=== PATIENT | female | born 1975 | race Caucasian/White ===

== ENCOUNTER 2022-12-21 14:15 | Inpatient (IN) | payer OTHER ==
[2022-12-21 15:45] VITALS: BMI 27.2
[2022-12-21] MEDS ORDERED: chlordiazePOXIDE HCL 25 MG CAPSULE PO ONE (18:43)
[2022-12-21] MEDS ORDERED: POLYETHYLENE GLYCOL (HEALTHYLAX) 3350 17 GM PACKET PO PRN (18:45)
[2022-12-21] MEDS ORDERED: BISMUTH SUBSALICYLATE 524 MG/30 ML PO PRN (18:45)
[2022-12-21] MEDS ORDERED: P-EPHED 60MG/TRIPROLIDI 2.5MG TABLET PO PRN (18:45)
[2022-12-21] MEDS ORDERED: LOPERAMIDE HCL 2 MG CAPSULE PO PRN (18:45)
[2022-12-21] MEDS ORDERED: BENZONATATE 200 MG CAPSULE PO PRN (18:45)
[2022-12-21] MEDS ORDERED: ACETAMINOPHEN 325 MG TABLET (FP) PO PRN (18:45)
[2022-12-21] MEDS ORDERED: BENZOCAINE/MENTHOL (CHLORASEPTIC ) LOZENGE MM PRN (18:45)
[2022-12-21] MEDS ORDERED: DICYCLOMINE HCL 10 MG CAPSULE PO PRN (18:45)
[2022-12-21] MEDS ORDERED: guaiFENesin 600 MG TABLET.ER (FP) PO PRN (18:45)
[2022-12-21] MEDS: BACITRACIN ZINC 15 GM TUBE TOPICAL OINTMENT TP SCH ×2 (20:11→23:32)
[2022-12-21] MEDS ORDERED: MELATONIN 5 MG TABLETS PO SCH (22:00)
[2022-12-21] MEDS: THIAMINE HCL 100 MG TABLET (FP) PO SCH (22:16)
[2022-12-21] MEDS: chlordiazePOXIDE HCL 25 MG CAPSULE PO SCH (22:17)
[2022-12-22] MEDS: chlordiazePOXIDE HCL 25 MG CAPSULE PO SCH ×4 (05:44→22:43)
[2022-12-22] MEDS: hydrOXYzine PAMOATE 25 MG CAPSULE (FP) PO PRN (10:20)
[2022-12-22] MEDS: METHOCARBAMOL 500 MG TABLET PO PRN (10:20)
[2022-12-22] MEDS: PRENATAL VITAMINS W/ FOLIC ACID TABLET (FP) PO SCH (10:20)
[2022-12-22] MEDS: BACITRACIN ZINC 15 GM TUBE TOPICAL OINTMENT TP SCH (10:20)
[2022-12-22 11:20] LABS: HEMOGLOBIN 11.7 GM/dL (10.7-15.3); MCH 28.6 pg (25.7-33.7); MCHC 32.6 g/dl (32.0-36.0); MEAN CELL VOLUME 87.7 fl (80-96); MEAN PLT VOLUME 8.2 fl (7.5-11.1); PLATELET COUNT 287 10^3/uL (134-434); RBC 4.11 M/mm3 (3.60-5.2); RDW 16.3 % (11.6-15.6); WHITE BLOOD COUNT 4.1 K/mm3 (4.0-10.0)
[2022-12-22 11:21] LABS: POTASSIUM 3.6 mmol/L (3.5-5.1)
[2022-12-22 11:34] LABS: ALBUMIN 3.2 g/dl (3.4-5.0); CALCIUM 8.7 mg/dL (8.5-10.1)
[2022-12-22 11:36] LABS: BLOOD UREA NITROGEN 15.2 mg/dL (7-18)
[2022-12-22 11:37] LABS: CREATININE 0.7 mg/dL (0.55-1.3)
[2022-12-22 11:39] LABS: BILIRUBIN,TOTAL 0.4 mg/dL (0.2-1); TOT PROT 6.1 g/dl (6.4-8.2)
[2022-12-22] MEDS: chlordiazePOXIDE HCL 25 MG CAPSULE PO PRN ×2 (12:46→19:18)
[2022-12-22] MEDS: GABAPENTIN 300 MG CAPSULE PO SCH ×2 (13:39→22:42)
[2022-12-22] MEDS: IBUPROFEN 600 MG TABLET (FP) PO PRN (17:06)
[2022-12-22] MEDS: ONDANSETRON *ODT* 4 MG TABLET SL PRN (17:06)
[2022-12-22] MEDS: BACITRACIN 0.9 GM PACKET TP SCH (22:42)
[2022-12-22] MEDS: THIAMINE HCL 100 MG TABLET (FP) PO SCH (22:42)
[2022-12-22] MEDS: MIRTAZAPINE 15 MG TABLET (FP) PO SCH (22:43)
[2022-12-23] MEDS: GABAPENTIN 300 MG CAPSULE PO SCH ×3 (05:26→22:09)
[2022-12-23] MEDS: chlordiazePOXIDE HCL 25 MG CAPSULE PO SCH ×4 (05:27→22:09)
[2022-12-23] MEDS: LEVOTHYROXINE 100 MCG, LEVOTHYROXINE 25 MCG PO SCH (06:03)
[2022-12-23] MEDS ORDERED: LEVOTHYROXINE PO SCH (07:00)
[2022-12-23] MEDS: BACITRACIN 0.9 GM PACKET TP SCH ×2 (10:16→22:09)
[2022-12-23] MEDS: hydrOXYzine PAMOATE 25 MG CAPSULE (FP) PO PRN ×2 (10:16→17:21)
[2022-12-23] MEDS: METHOCARBAMOL 500 MG TABLET PO PRN ×2 (10:16→22:09)
[2022-12-23] MEDS: PRENATAL VITAMINS W/ FOLIC ACID TABLET (FP) PO SCH (10:16)
[2022-12-23] MEDS: FLUTICASONE PROP 0.05% 16 GM NASAL SPRAY NS SCH (15:27)
[2022-12-23] MEDS: chlordiazePOXIDE HCL 25 MG CAPSULE PO PRN ×2 (15:29→20:30)
[2022-12-23] MEDS: MIRTAZAPINE 15 MG TABLET (FP) PO SCH (22:09)
[2022-12-23] MEDS: THIAMINE HCL 100 MG TABLET (FP) PO SCH (22:09)
[2022-12-23] MEDS: MAG HYDROX/AL HYDROX/SIMETH 30 ML UNIT-DOSE CUP PO PRN (22:10)
[2022-12-23] MEDS: IBUPROFEN 600 MG TABLET (FP) PO PRN (23:39)
[2022-12-24] MEDS: chlordiazePOXIDE HCL 10 MG CAPSULE PO PRN ×3 (00:38→21:17)
[2022-12-24] MEDS: GABAPENTIN 300 MG CAPSULE PO SCH ×3 (05:59→22:40)
[2022-12-24] MEDS: chlordiazePOXIDE HCL 10 MG CAPSULE PO SCH ×4 (06:00→22:41)
[2022-12-24] MEDS: METHOCARBAMOL 500 MG TABLET PO PRN (10:10)
[2022-12-24] MEDS: hydrOXYzine PAMOATE 25 MG CAPSULE (FP) PO PRN ×2 (10:10→17:36)
[2022-12-24] MEDS: BACITRACIN 0.9 GM PACKET TP SCH ×2 (10:10→22:40)
[2022-12-24] MEDS: FLUTICASONE PROP 0.05% 16 GM NASAL SPRAY NS SCH (10:10)
[2022-12-24] MEDS: PRENATAL VITAMINS W/ FOLIC ACID TABLET (FP) PO SCH (10:10)
[2022-12-24] MEDS: IBUPROFEN 600 MG TABLET (FP) PO PRN (13:52)
[2022-12-24] MEDS: THIAMINE HCL 100 MG TABLET (FP) PO SCH (22:40)
[2022-12-24] MEDS: MIRTAZAPINE 15 MG TABLET (FP) PO SCH (22:41)
[2022-12-25] MEDS: chlordiazePOXIDE HCL 10 MG CAPSULE PO SCH ×2 (05:46→17:23)
[2022-12-25] MEDS: GABAPENTIN 300 MG CAPSULE PO SCH ×3 (05:46→22:26)
[2022-12-25] MEDS: PRENATAL VITAMINS W/ FOLIC ACID TABLET (FP) PO SCH (10:25)
[2022-12-25] MEDS: FLUTICASONE PROP 0.05% 16 GM NASAL SPRAY NS SCH (10:27)
[2022-12-25] MEDS: BACITRACIN 0.9 GM PACKET TP SCH ×2 (10:27→22:25)
[2022-12-25] MEDS: METHOCARBAMOL 500 MG TABLET PO PRN (17:20)
[2022-12-25] MEDS: hydrOXYzine PAMOATE 25 MG CAPSULE (FP) PO PRN (17:20)
[2022-12-25] MEDS: ONDANSETRON *ODT* 4 MG TABLET SL PRN (19:46)
[2022-12-25] MEDS: IBUPROFEN 600 MG TABLET (FP) PO PRN (19:46)
[2022-12-25] MEDS: THIAMINE HCL 100 MG TABLET (FP) PO SCH (22:25)
[2022-12-25] MEDS: MIRTAZAPINE 15 MG TABLET (FP) PO SCH (22:26)
[2022-12-25] MEDS: MAG HYDROX/AL HYDROX/SIMETH 30 ML UNIT-DOSE CUP PO PRN (23:33)
[2022-12-26] MEDS ORDERED: chlordiazePOXIDE HCL 10 MG CAPSULE PO ONE (05:00)
[2022-12-26] MEDS: GABAPENTIN 300 MG CAPSULE PO SCH ×3 (05:53→21:37)
[2022-12-26] MEDS: PRENATAL VITAMINS W/ FOLIC ACID TABLET (FP) PO SCH (09:42)
[2022-12-26] MEDS: FLUTICASONE PROP 0.05% 16 GM NASAL SPRAY NS SCH (09:42)
[2022-12-26] MEDS: BACITRACIN 0.9 GM PACKET TP SCH ×2 (09:42→21:37)
[2022-12-26] MEDS: IBUPROFEN 600 MG TABLET (FP) PO PRN ×2 (11:58→19:19)
[2022-12-26] MEDS: ONDANSETRON *ODT* 4 MG TABLET SL PRN ×2 (11:58→19:19)
[2022-12-26] MEDS: MIRTAZAPINE 15 MG TABLET (FP) PO SCH (21:37)
[2022-12-26] MEDS: THIAMINE HCL 100 MG TABLET (FP) PO SCH (21:37)
[2022-12-27] MEDS: METHOCARBAMOL 500 MG TABLET PO PRN (01:27)
[2022-12-27] MEDS: hydrOXYzine PAMOATE 25 MG CAPSULE (FP) PO PRN ×3 (01:27→21:19)
[2022-12-27] MEDS: LEVOTHYROXINE 100 MCG, LEVOTHYROXINE 25 MCG PO SCH (06:18)
[2022-12-27] MEDS: GABAPENTIN 300 MG CAPSULE PO SCH ×3 (06:40→21:19)
[2022-12-27] MEDS: BACITRACIN 0.9 GM PACKET TP SCH ×2 (10:25→21:19)
[2022-12-27] MEDS: PRENATAL VITAMINS W/ FOLIC ACID TABLET (FP) PO SCH (10:26)
[2022-12-27] MEDS: FLUTICASONE PROP 0.05% 16 GM NASAL SPRAY NS SCH (13:28)
[2022-12-27] MEDS: IBUPROFEN 400 MG TABLET (FP) PO PRN (19:39)
[2022-12-27] MEDS: ONDANSETRON *ODT* 4 MG TABLET SL PRN (19:39)
[2022-12-27] MEDS: MIRTAZAPINE 15 MG TABLET (FP) PO SCH (21:19)
[2022-12-27] MEDS: THIAMINE HCL 100 MG TABLET (FP) PO SCH (21:20)
[2022-12-28] MEDS: GABAPENTIN 300 MG CAPSULE PO SCH ×3 (07:00→21:21)
[2022-12-28] MEDS: FLUTICASONE PROP 0.05% 16 GM NASAL SPRAY NS SCH (09:58)
[2022-12-28] MEDS: BACITRACIN 0.9 GM PACKET TP SCH ×2 (09:58→21:21)
[2022-12-28] MEDS: PRENATAL VITAMINS W/ FOLIC ACID TABLET (FP) PO SCH (09:58)
[2022-12-28] MEDS: hydrOXYzine PAMOATE 25 MG CAPSULE (FP) PO PRN (14:04)
[2022-12-28] MEDS ORDERED: buPROPion HCL 100 MG TABLET PO ONE (16:00)
[2022-12-28] MEDS ORDERED: buPROPion HCL 75 MG TABLET PO ONE (17:00)
[2022-12-28] MEDS: SUVOREXANT 10 MG TABLET PO PRN (21:21)
[2022-12-28] MEDS: THIAMINE HCL 100 MG TABLET (FP) PO SCH (21:21)
[2022-12-28] MEDS: MIRTAZAPINE 15 MG TABLET (FP) PO SCH (21:21)
[2022-12-29] MEDS: GABAPENTIN 300 MG CAPSULE PO SCH ×3 (06:03→21:08)
[2022-12-29] MEDS: BACITRACIN 0.9 GM PACKET TP SCH ×2 (10:00→21:07)
[2022-12-29] MEDS: PRENATAL VITAMINS W/ FOLIC ACID TABLET (FP) PO SCH (10:00)
[2022-12-29] MEDS: FLUTICASONE PROP 0.05% 16 GM NASAL SPRAY NS SCH (10:02)
[2022-12-29] MEDS: hydrOXYzine PAMOATE 25 MG CAPSULE (FP) PO PRN ×2 (13:32→21:08)
[2022-12-29] MEDS: buPROPion HCL 75 MG TABLET PO SCH (14:32)
[2022-12-29] MEDS ORDERED: buPROPion HCL 75 MG TABLET PO SCH (15:00)
[2022-12-29] MEDS: MIRTAZAPINE 15 MG TABLET (FP) PO SCH (21:08)
[2022-12-29] MEDS: THIAMINE HCL 100 MG TABLET (FP) PO SCH (21:08)
[2022-12-29] MEDS: SUVOREXANT 10 MG TABLET PO PRN (21:08)
[2022-12-30] MEDS: GABAPENTIN 300 MG CAPSULE PO SCH ×3 (06:44→21:28)
[2022-12-30] MEDS: FLUTICASONE PROP 0.05% 16 GM NASAL SPRAY NS SCH (09:48)
[2022-12-30] MEDS: BACITRACIN 0.9 GM PACKET TP SCH ×2 (09:48→21:27)
[2022-12-30] MEDS: PRENATAL VITAMINS W/ FOLIC ACID TABLET (FP) PO SCH (09:48)
[2022-12-30] MEDS: IBUPROFEN 600 MG TABLET (FP) PO PRN ×2 (11:15→21:34)
[2022-12-30] MEDS: FAMOTIDINE 20 MG TABLET PO SCH (14:06)
[2022-12-30] MEDS: buPROPion HCL 75 MG TABLET PO SCH (15:19)
[2022-12-30] MEDS: hydrOXYzine PAMOATE 25 MG CAPSULE (FP) PO PRN (18:46)
[2022-12-30] MEDS: THIAMINE HCL 100 MG TABLET (FP) PO SCH (21:27)
[2022-12-30] MEDS: MIRTAZAPINE 15 MG TABLET (FP) PO SCH (21:27)
[2022-12-30] MEDS: SUVOREXANT 10 MG TABLET PO PRN (21:35)
[2022-12-31] MEDS ORDERED: LEVOTHYROXINE NA 25 MCG TABLET (FP) PO SCH (06:00)
[2022-12-31] MEDS: GABAPENTIN 300 MG CAPSULE PO SCH ×3 (06:34→21:24)
[2022-12-31] MEDS: LEVOTHYROXINE 100 MCG, LEVOTHYROXINE 25 MCG PO SCH (06:34)
[2022-12-31] MEDS: PRENATAL VITAMINS W/ FOLIC ACID TABLET (FP) PO SCH (10:17)
[2022-12-31] MEDS: BACITRACIN 0.9 GM PACKET TP SCH ×2 (10:19→21:23)
[2022-12-31] MEDS: FAMOTIDINE 20 MG TABLET PO SCH (10:19)
[2022-12-31] MEDS: FLUTICASONE PROP 0.05% 16 GM NASAL SPRAY NS SCH (10:19)
[2022-12-31] MEDS: buPROPion HCL 75 MG TABLET PO SCH (16:12)
[2022-12-31] MEDS: hydrOXYzine PAMOATE 25 MG CAPSULE (FP) PO PRN (19:19)
[2022-12-31] MEDS: IBUPROFEN 600 MG TABLET (FP) PO PRN (19:19)
[2022-12-31] MEDS: THIAMINE HCL 100 MG TABLET (FP) PO SCH (21:23)
[2022-12-31] MEDS: MIRTAZAPINE 15 MG TABLET (FP) PO SCH (21:24)
[2022-12-31] MEDS: SUVOREXANT 10 MG TABLET PO PRN (21:25)
[2023-01-01] MEDS: LEVOTHYROXINE 100 MCG, LEVOTHYROXINE 25 MCG PO SCH (06:17)
[2023-01-01] MEDS: GABAPENTIN 300 MG CAPSULE PO SCH ×3 (06:17→21:19)
[2023-01-01] MEDS: FLUTICASONE PROP 0.05% 16 GM NASAL SPRAY NS SCH (10:19)
[2023-01-01] MEDS: FAMOTIDINE 20 MG TABLET PO SCH (10:19)
[2023-01-01] MEDS: PRENATAL VITAMINS W/ FOLIC ACID TABLET (FP) PO SCH (10:19)
[2023-01-01] MEDS: BACITRACIN 0.9 GM PACKET TP SCH ×2 (10:19→21:19)
[2023-01-01] MEDS: IBUPROFEN 600 MG TABLET (FP) PO PRN (11:53)
[2023-01-01] MEDS: buPROPion HCL 75 MG TABLET PO SCH (15:47)
[2023-01-01] MEDS: hydrOXYzine PAMOATE 25 MG CAPSULE (FP) PO PRN (18:41)
[2023-01-01] MEDS: MIRTAZAPINE 15 MG TABLET (FP) PO SCH (21:19)
[2023-01-01] MEDS: THIAMINE HCL 100 MG TABLET (FP) PO SCH (21:20)
[2023-01-01] MEDS: SUVOREXANT 10 MG TABLET PO PRN (21:21)
[2023-01-02] MEDS: LEVOTHYROXINE 100 MCG, LEVOTHYROXINE 25 MCG PO SCH (06:15)
[2023-01-02] MEDS: GABAPENTIN 300 MG CAPSULE PO SCH ×3 (06:32→21:16)
[2023-01-02] MEDS: PRENATAL VITAMINS W/ FOLIC ACID TABLET (FP) PO SCH (09:36)
[2023-01-02] MEDS: BACITRACIN 0.9 GM PACKET TP SCH ×2 (09:36→21:16)
[2023-01-02] MEDS: FAMOTIDINE 20 MG TABLET PO SCH (09:36)
[2023-01-02] MEDS: FLUTICASONE PROP 0.05% 16 GM NASAL SPRAY NS SCH (09:36)
[2023-01-02] MEDS: buPROPion HCL 75 MG TABLET PO SCH (15:47)
[2023-01-02] MEDS: hydrOXYzine PAMOATE 25 MG CAPSULE (FP) PO PRN (20:14)
[2023-01-02] MEDS: IBUPROFEN 600 MG TABLET (FP) PO PRN (20:15)
[2023-01-02] MEDS: THIAMINE HCL 100 MG TABLET (FP) PO SCH (21:16)
[2023-01-02] MEDS: SUVOREXANT 10 MG TABLET PO PRN (21:16)
[2023-01-02] MEDS: MIRTAZAPINE 15 MG TABLET (FP) PO SCH (21:16)
[2023-01-03] MEDS: LEVOTHYROXINE 100 MCG, LEVOTHYROXINE 25 MCG PO SCH (06:40)
[2023-01-03] MEDS: GABAPENTIN 300 MG CAPSULE PO SCH ×4 (06:44→21:23)
[2023-01-03] MEDS: IBUPROFEN 400 MG TABLET (FP) PO PRN (07:25)
[2023-01-03] MEDS: FLUTICASONE PROP 0.05% 16 GM NASAL SPRAY NS SCH (10:42)
[2023-01-03] MEDS: FAMOTIDINE 20 MG TABLET PO SCH (10:42)
[2023-01-03] MEDS: BACITRACIN 0.9 GM PACKET TP SCH ×2 (10:42→21:23)
[2023-01-03] MEDS: PRENATAL VITAMINS W/ FOLIC ACID TABLET (FP) PO SCH (10:43)
[2023-01-03] MEDS: buPROPion HCL 75 MG TABLET PO SCH (14:26)
[2023-01-03] MEDS: THIAMINE HCL 100 MG TABLET (FP) PO SCH (21:23)
[2023-01-03] MEDS: SUVOREXANT 10 MG TABLET PO PRN (21:23)
[2023-01-03] MEDS: MIRTAZAPINE 15 MG TABLET (FP) PO SCH (21:23)
[2023-01-04] MEDS: GABAPENTIN 300 MG CAPSULE PO SCH ×3 (06:09→21:02)
[2023-01-04] MEDS: LEVOTHYROXINE 100 MCG, LEVOTHYROXINE 25 MCG PO SCH (06:09)
[2023-01-04] MEDS: BACITRACIN 0.9 GM PACKET TP SCH ×2 (10:03→21:02)
[2023-01-04] MEDS: FLUTICASONE PROP 0.05% 16 GM NASAL SPRAY NS SCH (10:03)
[2023-01-04] MEDS: FAMOTIDINE 20 MG TABLET PO SCH (10:04)
[2023-01-04] MEDS: PRENATAL VITAMINS W/ FOLIC ACID TABLET (FP) PO SCH (10:04)
[2023-01-04] MEDS: NALTREXONE HCL 50 MG TABLET PO SCH (10:04)
[2023-01-04] MEDS: buPROPion HCL 75 MG TABLET PO SCH (15:04)
[2023-01-04] MEDS: IBUPROFEN 600 MG TABLET (FP) PO PRN (15:49)
[2023-01-04] MEDS: MIRTAZAPINE 15 MG TABLET (FP) PO SCH (21:02)
[2023-01-04] MEDS: THIAMINE HCL 100 MG TABLET (FP) PO SCH (21:03)
[2023-01-04] MEDS: SUVOREXANT 10 MG TABLET PO PRN (21:04)
[2023-01-05] MEDS: LEVOTHYROXINE 100 MCG, LEVOTHYROXINE 25 MCG PO SCH (06:24)
[2023-01-05] MEDS: GABAPENTIN 300 MG CAPSULE PO SCH ×3 (06:24→21:14)
[2023-01-05 07:18] VITALS: RESP 18
[2023-01-05] MEDS: PRENATAL VITAMINS W/ FOLIC ACID TABLET (FP) PO SCH (09:53)
[2023-01-05] MEDS: NALTREXONE HCL 50 MG TABLET PO SCH (09:54)
[2023-01-05] MEDS: FLUTICASONE PROP 0.05% 16 GM NASAL SPRAY NS SCH (09:54)
[2023-01-05] MEDS: BACITRACIN 0.9 GM PACKET TP SCH ×2 (09:54→21:16)
[2023-01-05] MEDS: FAMOTIDINE 20 MG TABLET PO SCH (09:54)
[2023-01-05] MEDS: buPROPion HCL 75 MG TABLET PO SCH (15:33)
[2023-01-05] MEDS: hydrOXYzine PAMOATE 25 MG CAPSULE (FP) PO PRN (21:13)
[2023-01-05] MEDS: THIAMINE HCL 100 MG TABLET (FP) PO SCH (21:13)
[2023-01-05] MEDS: IBUPROFEN 600 MG TABLET (FP) PO PRN (21:14)
[2023-01-05] MEDS: MIRTAZAPINE 15 MG TABLET (FP) PO SCH (21:14)
[2023-01-05] MEDS: SUVOREXANT 10 MG TABLET PO PRN (21:16)
[2023-01-06] MEDS: LEVOTHYROXINE 100 MCG, LEVOTHYROXINE 25 MCG PO SCH (06:07)
[2023-01-06] MEDS: GABAPENTIN 300 MG CAPSULE PO SCH ×3 (06:07→21:31)
[2023-01-06] MEDS: FAMOTIDINE 20 MG TABLET PO SCH (10:00)
[2023-01-06] MEDS: FLUTICASONE PROP 0.05% 16 GM NASAL SPRAY NS SCH (10:00)
[2023-01-06] MEDS: PRENATAL VITAMINS W/ FOLIC ACID TABLET (FP) PO SCH (10:00)
[2023-01-06] MEDS: BACITRACIN 0.9 GM PACKET TP SCH ×2 (10:00→21:31)
[2023-01-06] MEDS: NALTREXONE HCL 50 MG TABLET PO SCH (10:01)
[2023-01-06] MEDS: buPROPion HCL 75 MG TABLET PO SCH (15:38)
[2023-01-06] MEDS: MIRTAZAPINE 15 MG TABLET (FP) PO SCH (21:32)
[2023-01-06] MEDS: THIAMINE HCL 100 MG TABLET (FP) PO SCH (21:32)
[2023-01-06] MEDS: SUVOREXANT 10 MG TABLET PO PRN (21:33)
[2023-01-06] MEDS: hydrOXYzine PAMOATE 25 MG CAPSULE (FP) PO PRN (21:35)
[2023-01-06] MEDS: IBUPROFEN 600 MG TABLET (FP) PO PRN (21:35)
[2023-01-07] MEDS: LEVOTHYROXINE 100 MCG, LEVOTHYROXINE 25 MCG PO SCH (06:20)
[2023-01-07] MEDS: GABAPENTIN 300 MG CAPSULE PO SCH ×3 (06:20→21:23)
[2023-01-07] MEDS: BACITRACIN 0.9 GM PACKET TP SCH ×2 (09:50→21:20)
[2023-01-07] MEDS: FAMOTIDINE 20 MG TABLET PO SCH (09:50)
[2023-01-07] MEDS: FLUTICASONE PROP 0.05% 16 GM NASAL SPRAY NS SCH (09:51)
[2023-01-07] MEDS: NALTREXONE HCL 50 MG TABLET PO SCH (09:51)
[2023-01-07] MEDS: PRENATAL VITAMINS W/ FOLIC ACID TABLET (FP) PO SCH (10:09)
[2023-01-07] MEDS: buPROPion HCL 75 MG TABLET PO SCH (15:06)
[2023-01-07] MEDS: MIRTAZAPINE 15 MG TABLET (FP) PO SCH (21:22)
[2023-01-07] MEDS: hydrOXYzine PAMOATE 25 MG CAPSULE (FP) PO PRN (21:22)
[2023-01-07] MEDS: THIAMINE HCL 100 MG TABLET (FP) PO SCH (21:22)
[2023-01-07] MEDS: IBUPROFEN 600 MG TABLET (FP) PO PRN (21:24)
[2023-01-07] MEDS: SUVOREXANT 10 MG TABLET PO PRN (21:35)
[2023-01-08] MEDS: LEVOTHYROXINE 100 MCG, LEVOTHYROXINE 25 MCG PO SCH (06:21)
[2023-01-08] MEDS: GABAPENTIN 300 MG CAPSULE PO SCH ×3 (06:22→21:32)
[2023-01-08] MEDS: IBUPROFEN 600 MG TABLET (FP) PO PRN ×2 (07:59→15:33)
[2023-01-08] MEDS: FLUTICASONE PROP 0.05% 16 GM NASAL SPRAY NS SCH (10:11)
[2023-01-08] MEDS: FAMOTIDINE 20 MG TABLET PO SCH (10:12)
[2023-01-08] MEDS: PRENATAL VITAMINS W/ FOLIC ACID TABLET (FP) PO SCH (10:12)
[2023-01-08] MEDS: NALTREXONE HCL 50 MG TABLET PO SCH (10:12)
[2023-01-08] MEDS: BACITRACIN 0.9 GM PACKET TP SCH ×2 (10:14→21:31)
[2023-01-08] MEDS: buPROPion HCL 75 MG TABLET PO SCH (15:32)
[2023-01-08] MEDS: THIAMINE HCL 100 MG TABLET (FP) PO SCH (21:32)
[2023-01-08] MEDS: MIRTAZAPINE 15 MG TABLET (FP) PO SCH (21:32)
[2023-01-09] MEDS: GABAPENTIN 300 MG CAPSULE PO SCH ×3 (05:56→21:26)
[2023-01-09] MEDS: IBUPROFEN 600 MG TABLET (FP) PO PRN ×2 (05:58→21:28)
[2023-01-09] MEDS: LEVOTHYROXINE 100 MCG, LEVOTHYROXINE 25 MCG PO SCH (06:47)
[2023-01-09] MEDS: FLUTICASONE PROP 0.05% 16 GM NASAL SPRAY NS SCH (09:55)
[2023-01-09] MEDS: NALTREXONE HCL 50 MG TABLET PO SCH (09:55)
[2023-01-09] MEDS: FAMOTIDINE 20 MG TABLET PO SCH (09:55)
[2023-01-09] MEDS: PRENATAL VITAMINS W/ FOLIC ACID TABLET (FP) PO SCH (09:55)
[2023-01-09] MEDS: BACITRACIN 0.9 GM PACKET TP SCH ×2 (09:56→21:51)
[2023-01-09] MEDS: buPROPion HCL 75 MG TABLET PO SCH (16:08)
[2023-01-09] MEDS: THIAMINE HCL 100 MG TABLET (FP) PO SCH (21:26)
[2023-01-09] MEDS: MIRTAZAPINE 15 MG TABLET (FP) PO SCH (21:26)
[2023-01-09] MEDS: hydrOXYzine PAMOATE 25 MG CAPSULE (FP) PO PRN (21:28)
[2023-01-09] MEDS ORDERED: SUVOREXANT 10 MG TABLET PO PRN (22:00)
[2023-01-10] MEDS: LEVOTHYROXINE 100 MCG, LEVOTHYROXINE 25 MCG PO SCH (06:43)
[2023-01-10] MEDS: GABAPENTIN 300 MG CAPSULE PO SCH ×3 (06:43→21:44)
[2023-01-10] MEDS: MAGNESIUM HYDROX 2400MG/30ML ORAL SUSPENSION 30 ML CUP PO PRN (07:50)
[2023-01-10] MEDS: FLUTICASONE PROP 0.05% 16 GM NASAL SPRAY NS SCH (10:10)
[2023-01-10] MEDS: PRENATAL VITAMINS W/ FOLIC ACID TABLET (FP) PO SCH (10:10)
[2023-01-10] MEDS: FAMOTIDINE 20 MG TABLET PO SCH (10:10)
[2023-01-10] MEDS: NALTREXONE HCL 50 MG TABLET PO SCH (10:10)
[2023-01-10] MEDS: BACITRACIN 0.9 GM PACKET TP SCH (10:10)
[2023-01-10] MEDS: buPROPion HCL 75 MG TABLET PO SCH (15:09)
[2023-01-10] MEDS: IBUPROFEN 600 MG TABLET (FP) PO PRN (16:32)
[2023-01-10] MEDS: MIRTAZAPINE 15 MG TABLET (FP) PO SCH (21:44)
[2023-01-10] MEDS: THIAMINE HCL 100 MG TABLET (FP) PO SCH (21:44)
[2023-01-10] MEDS: hydrOXYzine PAMOATE 25 MG CAPSULE (FP) PO PRN (21:45)
[2023-01-11] MEDS: GABAPENTIN 300 MG CAPSULE PO SCH ×3 (06:30→21:29)
[2023-01-11] MEDS: LEVOTHYROXINE 100 MCG, LEVOTHYROXINE 25 MCG PO SCH (06:30)
[2023-01-11] MEDS: FLUTICASONE PROP 0.05% 16 GM NASAL SPRAY NS SCH (09:57)
[2023-01-11] MEDS: PRENATAL VITAMINS W/ FOLIC ACID TABLET (FP) PO SCH (09:57)
[2023-01-11] MEDS: NALTREXONE HCL 50 MG TABLET PO SCH (09:58)
[2023-01-11] MEDS: FAMOTIDINE 20 MG TABLET PO SCH (09:59)
[2023-01-11] MEDS: buPROPion HCL 75 MG TABLET PO SCH (14:09)
[2023-01-11] MEDS: hydrOXYzine PAMOATE 25 MG CAPSULE (FP) PO PRN (21:28)
[2023-01-11] MEDS: IBUPROFEN 600 MG TABLET (FP) PO PRN (21:29)
[2023-01-11] MEDS: THIAMINE HCL 100 MG TABLET (FP) PO SCH (21:29)
[2023-01-11] MEDS: MIRTAZAPINE 15 MG TABLET (FP) PO SCH (21:29)
[2023-01-11] MEDS: SUVOREXANT 15 MG TABLET PO PRN (21:29)
[2023-01-11] MEDS ORDERED: SUVOREXANT 10 MG TABLET PO PRN (22:00)
[2023-01-12] MEDS: GABAPENTIN 300 MG CAPSULE PO SCH ×3 (06:11→21:30)
[2023-01-12] MEDS: LEVOTHYROXINE 100 MCG, LEVOTHYROXINE 25 MCG PO SCH (06:12)
[2023-01-12] MEDS: MAGNESIUM HYDROX 2400MG/30ML ORAL SUSPENSION 30 ML CUP PO PRN (06:12)
[2023-01-12] MEDS ORDERED: COLLOIDAL OATMEAL 1 BAR EACH TP PRN (09:18)
[2023-01-12] MEDS: FAMOTIDINE 20 MG TABLET PO SCH (09:52)
[2023-01-12] MEDS: NALTREXONE HCL 50 MG TABLET PO SCH (09:52)
[2023-01-12] MEDS: PRENATAL VITAMINS W/ FOLIC ACID TABLET (FP) PO SCH (09:53)
[2023-01-12] MEDS: FLUTICASONE PROP 0.05% 16 GM NASAL SPRAY NS SCH (09:53)
[2023-01-12] MEDS: SUVOREXANT 15 MG TABLET PO PRN (21:30)
[2023-01-12] MEDS: hydrOXYzine PAMOATE 25 MG CAPSULE (FP) PO PRN (21:30)
[2023-01-12] MEDS: THIAMINE HCL 100 MG TABLET (FP) PO SCH (21:30)
[2023-01-12] MEDS: MIRTAZAPINE 15 MG TABLET (FP) PO SCH (21:30)
[2023-01-12] MEDS: IBUPROFEN 400 MG TABLET (FP) PO PRN (21:31)
[2023-01-13] MEDS: GABAPENTIN 300 MG CAPSULE PO SCH ×3 (06:30→21:25)
[2023-01-13] MEDS: LEVOTHYROXINE 100 MCG, LEVOTHYROXINE 25 MCG PO SCH (06:31)
[2023-01-13] MEDS: PRENATAL VITAMINS W/ FOLIC ACID TABLET (FP) PO SCH (10:15)
[2023-01-13] MEDS: FAMOTIDINE 20 MG TABLET PO SCH (10:15)
[2023-01-13] MEDS: NALTREXONE HCL 50 MG TABLET PO SCH (10:15)
[2023-01-13] MEDS: IBUPROFEN 600 MG TABLET (FP) PO PRN (10:15)
[2023-01-13] MEDS: FLUTICASONE PROP 0.05% 16 GM NASAL SPRAY NS SCH (10:16)
[2023-01-13] MEDS: buPROPion HCL 75 MG TABLET PO SCH (14:09)
[2023-01-13] MEDS: MIRTAZAPINE 15 MG TABLET (FP) PO SCH (21:25)
[2023-01-13] MEDS: SUVOREXANT 15 MG TABLET PO PRN (21:25)
[2023-01-13] MEDS: THIAMINE HCL 100 MG TABLET (FP) PO SCH (21:25)
[2023-01-14] MEDS: GABAPENTIN 300 MG CAPSULE PO SCH ×3 (06:46→21:21)
[2023-01-14] MEDS: LEVOTHYROXINE 100 MCG, LEVOTHYROXINE 25 MCG PO SCH (06:47)
[2023-01-14] MEDS: buPROPion HCL 75 MG TABLET PO SCH ×2 (09:45→14:57)
[2023-01-14] MEDS: FLUTICASONE PROP 0.05% 16 GM NASAL SPRAY NS SCH (10:12)
[2023-01-14] MEDS: PRENATAL VITAMINS W/ FOLIC ACID TABLET (FP) PO SCH (10:13)
[2023-01-14] MEDS: NALTREXONE HCL 50 MG TABLET PO SCH (10:13)
[2023-01-14] MEDS: FAMOTIDINE 20 MG TABLET PO SCH (10:13)
[2023-01-14] MEDS: IBUPROFEN 400 MG TABLET (FP) PO PRN (21:20)
[2023-01-14] MEDS: SUVOREXANT 15 MG TABLET PO PRN (21:20)
[2023-01-14] MEDS: MIRTAZAPINE 15 MG TABLET (FP) PO SCH (21:21)
[2023-01-14] MEDS: THIAMINE HCL 100 MG TABLET (FP) PO SCH (21:21)
[2023-01-14] MEDS: hydrOXYzine PAMOATE 25 MG CAPSULE (FP) PO PRN (21:22)
[2023-01-15] MEDS: GABAPENTIN 300 MG CAPSULE PO SCH ×3 (06:26→21:36)
[2023-01-15] MEDS: LEVOTHYROXINE 100 MCG, LEVOTHYROXINE 25 MCG PO SCH (06:26)
[2023-01-15] MEDS: IBUPROFEN 400 MG TABLET (FP) PO PRN ×2 (07:11→21:37)
[2023-01-15] MEDS: FLUTICASONE PROP 0.05% 16 GM NASAL SPRAY NS SCH (10:09)
[2023-01-15] MEDS: NALTREXONE HCL 50 MG TABLET PO SCH (10:09)
[2023-01-15] MEDS: PRENATAL VITAMINS W/ FOLIC ACID TABLET (FP) PO SCH (10:09)
[2023-01-15] MEDS: FAMOTIDINE 20 MG TABLET PO SCH (10:09)
[2023-01-15] MEDS: buPROPion HCL 75 MG TABLET PO SCH (14:03)
[2023-01-15] MEDS: MIRTAZAPINE 15 MG TABLET (FP) PO SCH (21:36)
[2023-01-15] MEDS: THIAMINE HCL 100 MG TABLET (FP) PO SCH (21:36)
[2023-01-15] MEDS: hydrOXYzine PAMOATE 25 MG CAPSULE (FP) PO PRN (21:36)
[2023-01-15] MEDS ORDERED: SUVOREXANT 15 MG TABLET PO ONE (22:07)
[2023-01-16] MEDS: LEVOTHYROXINE 100 MCG, LEVOTHYROXINE 25 MCG PO SCH (06:49)
[2023-01-16] MEDS: GABAPENTIN 300 MG CAPSULE PO SCH ×3 (06:49→21:32)
[2023-01-16 07:09] VITALS: TEMP 97.4
[2023-01-16] MEDS ORDERED: NALTREXONE MICROSPHERES (VIVITROL) 380 MG DISP.SYRIN IM ONE (10:00)
[2023-01-16] MEDS: NALTREXONE HCL 50 MG TABLET PO SCH (10:08)
[2023-01-16] MEDS: FAMOTIDINE 20 MG TABLET PO SCH (10:08)
[2023-01-16] MEDS: FLUTICASONE PROP 0.05% 16 GM NASAL SPRAY NS SCH (10:08)
[2023-01-16] MEDS: PRENATAL VITAMINS W/ FOLIC ACID TABLET (FP) PO SCH (10:08)
[2023-01-16] MEDS: buPROPion HCL 75 MG TABLET PO SCH (14:05)
[2023-01-16] MEDS: THIAMINE HCL 100 MG TABLET (FP) PO SCH (21:32)
[2023-01-16] MEDS: MIRTAZAPINE 15 MG TABLET (FP) PO SCH (21:32)
[2023-01-16] MEDS: hydrOXYzine PAMOATE 25 MG CAPSULE (FP) PO PRN (21:33)
[2023-01-17] MEDS: GABAPENTIN 300 MG CAPSULE PO SCH (06:54)
[2023-01-17] MEDS: LEVOTHYROXINE 100 MCG, LEVOTHYROXINE 25 MCG PO SCH (06:54)
[2023-01-17 07:27] VITALS: BP 115/80; PULSE 73
[2023-01-17] MEDS: FLUTICASONE PROP 0.05% 16 GM NASAL SPRAY NS SCH (09:54)
[2023-01-17] MEDS: PRENATAL VITAMINS W/ FOLIC ACID TABLET (FP) PO SCH (09:54)
[2023-01-17] MEDS: NALTREXONE HCL 50 MG TABLET PO SCH (09:55)
[2023-01-17] MEDS: FAMOTIDINE 20 MG TABLET PO SCH (09:55)
[2023-01-17] MEDS ORDERED: NALTREXONE MICROSPHERES (VIVITROL) 380 MG DISP.SYRIN IM ONE (10:00)
== END 2023-01-17 10:20 | disposition home or self-care (01) | DRG 895 ==
LOC: YASAS 14:15 → Y6N 20:18 → Y5N 12-26 13:22
PROVIDERS: ADMIT Allergy & Immunology; ATTEND Psychiatry & Neurology Pain Medicine
PROC: HZ2ZZZZ Detoxification Services for Substance Abuse Treatment (ICD-10-PCS; 2022-12-21)
PROC: HZ42ZZZ Group Counseling for Substance Abuse Treatment, Cognitive-Behavioral (ICD-10-PCS; principal; 2022-12-26)
DX: F10.20 Alcohol dependence, uncomplicated (principal); F14.20 Cocaine dependence, uncomplicated; F19.282 Other psychoactive substance dependence with psychoactive substance-induced sleep disorder; F17.210 Nicotine dependence, cigarettes, uncomplicated; F19.24 Other psychoactive substance dependence with psychoactive substance-induced mood disorder; F32.A Depression, unspecified; E03.9 Hypothyroidism, unspecified; K21.9 Gastro-esophageal reflux disease without esophagitis; M54.50 Low back pain, unspecified; G89.29 Other chronic pain
CPT/HCPCS: 36415; 80053; 81025; 84436; 84443; 84480; 85027; 86780; 87635; 87811; 93005; 93010; J2315; Q0162

== ENCOUNTER 2024-04-05 18:51 | Inpatient (IN) | payer OTHER ==
[2024-04-05 19:25] VITALS: BMI 25.0
[2024-04-05] MEDS ORDERED: MAGNESIUM HYDROX 2400MG/30ML ORAL SUSPENSION 30 ML CUP PO PRN (19:53)
[2024-04-05] MEDS ORDERED: MAG HYDROX/AL HYDROX/SIMETH 30 ML UNIT-DOSE CUP PO PRN (19:53)
[2024-04-05] MEDS ORDERED: POLYETHYLENE GLYCOL (HEALTHYLAX) 3350 17 GM PACKET PO PRN (19:53)
[2024-04-05] MEDS ORDERED: NICOTINE POLACRILEX 2 MG LOZENGE BC PRN (19:53)
[2024-04-05] MEDS ORDERED: LOPERAMIDE HCL 2 MG CAPSULE PO PRN (19:53)
[2024-04-05] MEDS ORDERED: guaiFENesin 600 MG TABLET.ER (FP) PO PRN (19:53)
[2024-04-05] MEDS ORDERED: IBUPROFEN 600 MG TABLET (FP) PO PRN (19:53)
[2024-04-05] MEDS ORDERED: BENZOCAINE/MENTHOL (CHLORASEPTIC ) LOZENGE MM PRN (19:53)
[2024-04-05] MEDS ORDERED: IBUPROFEN 400 MG TABLET (FP) PO PRN (19:53)
[2024-04-05] MEDS ORDERED: NALOXONE (NARCAN) HCL 4 MG/0.1 ML SPRAY NS PRN (19:53)
[2024-04-05] MEDS ORDERED: BISMUTH SUBSALICYLATE 524 MG/30 ML PO PRN (19:53)
[2024-04-05] MEDS ORDERED: BENZONATATE 200 MG CAPSULE PO PRN (19:53)
[2024-04-05] MEDS ORDERED: NICOTINE POLACRILEX 2 MG GUM BUC PRN (19:53)
[2024-04-05] MEDS ORDERED: DICYCLOMINE HCL 10 MG CAPSULE PO PRN (19:53)
[2024-04-05] MEDS: THIAMINE 100 MG TABLET PO SCH (22:20)
[2024-04-05] MEDS: diazePAM 5 MG TABLET PO SCH (22:21)
[2024-04-05] MEDS: METHOCARBAMOL 500 MG TABLET PO PRN (22:21)
[2024-04-05] MEDS: MELATONIN 5 MG TABLETS PO SCH (22:21)
[2024-04-06] MEDS ORDERED: LEVOTHYROXINE PO SCH (07:00)
[2024-04-06] MEDS: LEVOTHYROXINE 25 MCG, LEVOTHYROXINE 100 MCG PO SCH (07:42)
[2024-04-06] MEDS: PRENATAL VITAMINS W/ FOLIC ACID TABLET (FP) PO SCH (10:06)
[2024-04-06] MEDS: DEXTROAMPHETAMINE/AMPHETAMINE 20 MG CAP.ER.24H PO SCH (11:39)
[2024-04-06] MEDS: BUPRENORPHINE/NALOXONE 8 MG/2 MG FILM PACKET SL SCH (12:28)
[2024-04-06] MEDS: ONDANSETRON *ODT* 4 MG TABLET SL PRN (16:03)
[2024-04-06] MEDS: ACETAMINOPHEN 325 MG TABLET (FP) PO PRN (17:10)
[2024-04-06] MEDS: hydrOXYzine PAMOATE 25 MG CAPSULE (FP) PO PRN (17:10)
[2024-04-06] MEDS: QUEtiapine FUMARATE 25 MG TABLET PO PRN (22:08)
[2024-04-07] MEDS: diazePAM 5 MG TABLET PO SCH (05:38)
[2024-04-07] MEDS: diazePAM 5 MG TABLET PO PRN (09:57)
[2024-04-08] MEDS: diazePAM 5 MG TABLET PO SCH (05:55)
[2024-04-08] MEDS: NALOXONE (NYS OPIOID OVERDOSE PROGRAM) 4 MG/0.1 ML SPRAY NS SCH (11:48)
[2024-04-08] MEDS: P-EPHED 60MG/TRIPROLIDI 2.5MG TABLET PO PRN (22:18)
[2024-04-09] MEDS: MELATONIN 5 MG TABLETS PO ONE (03:00)
[2024-04-09] MEDS: diazePAM 5 MG TABLET PO ONE (05:24)
[2024-04-09 13:03] VITALS: BP 134/88; PULSE 89; RESP 18; TEMP 98.6
== END 2024-04-09 12:46 | disposition home or self-care (01) | DRG 897 ==
LOC: YASAS 18:51 → Y6N 21:31
PROVIDERS: ADMIT Allergy & Immunology; ATTEND Allergy & Immunology
PROC: HZ2ZZZZ Detoxification Services for Substance Abuse Treatment (ICD-10-PCS; principal; 2024-04-05)
DX: F10.230 Alcohol dependence with withdrawal, uncomplicated (principal); F11.20 Opioid dependence, uncomplicated; F14.20 Cocaine dependence, uncomplicated; F19.280 Other psychoactive substance dependence with psychoactive substance-induced anxiety disorder; F19.282 Other psychoactive substance dependence with psychoactive substance-induced sleep disorder; F12.20 Cannabis dependence, uncomplicated; F17.210 Nicotine dependence, cigarettes, uncomplicated; F19.24 Other psychoactive substance dependence with psychoactive substance-induced mood disorder; F90.9 Attention-deficit hyperactivity disorder, unspecified type; E03.9 Hypothyroidism, unspecified; M25.511 Pain in right shoulder; M54.50 Low back pain, unspecified; G89.29 Other chronic pain
CPT/HCPCS: 80305; 80307; 81025; 93005; 93010; Q0162